=== PATIENT | female | born 1985 | race Caucasian/White ===

== ENCOUNTER → 2020-02-21 | Outpatient (CLI) | payer OTHER ==
--- NOTE | 2020-02-21 09:54 | KCIC ---
Examination: MRI of the left knee without contrast HISTORY: History of left knee pain COMPARISON: None available Technique: Multiplanar, multisequence MR imaging of the left knee was performed without contrast. FINDINGS: The anterior cruciate ligament, posterior cruciate ligament appear intact. There is increased T2 signal identified in the body of the medial meniscus could be horizontal tear or degenerative tear. The lateral meniscus appears intact. The medial collateral ligament, lateral collateral ligamentous complex including the fibular collateral ligament, biceps femoris tendon, popliteus tendon appear intact. The medial, lateral retinaculum appears intact small knee joint effusion. The extensor mechanism appears intact. Minimal knee joint effusion. Minimal superficial fraying of cartilage identified in the medial compartment. IMPRESSION: 1. Increased T2 signal identified in the body of the medial meniscus could be horizontal tear or degenerative tear. 2. Small knee joint effusion. Electronically signed by: Rip Carney MD (02/21/2020 9:50 AM) [id number]
--- NOTE | 2020-02-21 16:20 | KCIC ---
Examination: MRI of the left ankle without contrast HISTORY: History of chronic left ankle pain COMPARISON: None available TECHNIQUE: Multiplanar multisequence MR imaging of the left ankle performed without contrast. FINDINGS: The attachment of the Achilles tendon to the calcaneus grossly appears intact. There is increased T2 signal identified with thickening of the plantar fascial attachment to the calcaneus likely plantar fasciitis with mild increased trabecular edema identified in the inferior aspect of the calcaneus. The anterior extensor compartment tendons, flexor tendons grossly appears intact. The attachment of the peroneal tendons grossly appears intact. Small amount of fluid identified in the peroneus longus thrombus tendon sheath lateral to the calcaneus and in the posterior tibialis tendon sheath probably mild tenosynovitis The visualized deltoid ligament appears intact. The anterior, posterior tibiofibular, and posterior talofibular ligament appear intact. Anterior talofibular ligament is not identified. Fat is present within the sinus tarsi. IMPRESSION: 1. Findings suggestive of plantar fasciitis. 2. Mild tenosynovitis posterior tibialis tendon and peroneus longus tendon. 3. An intact anterior talofibular ligament is not identified could be prior injury.. Electronically signed by: Rip Carney MD (02/21/2020 4:18 PM) [id number]
== END | disposition home or self-care (01) ==
LOC: KCIC MRI 07:47
PROVIDERS: ATTEND Physician Assistant
DX: M23.304 Other meniscus derangements, unspecified medial meniscus, left knee (principal); M25.462 Effusion, left knee; M25.372 Other instability, left ankle; M65.88 Other synovitis and tenosynovitis, other site
CPT/HCPCS: 73721